=== PATIENT | female | born 1950 | race Caucasian/White ===

== ENCOUNTER → 2016-07-21 | Outpatient (CLI) | payer OTHER ==
[~2016-07-21] MED LIST: ASPEC81 PO; CALCTAB5 PO; CLX20 PO; DYZ PO; LORA-741 PO; MULT-506 PO; VTMEUNK PO
== END | disposition home or self-care (01) ==
LOC: C.RDSM 12:32
PROVIDERS: ATTEND Physical Medicine & Rehabilitation Sports Medicine
DX: M25.561 Pain in right knee (principal)

== ENCOUNTER → 2016-09-14 | Outpatient (CLI) | payer OTHER ==
[2016-09-14 13:11] LABS: BASO % 0.3 %; BASO ABS # 0.02 K/uL (0-0.2); COMPLETE YES; EOS % 4.4 %; HEMATOCRIT 39.7 % (37-47); IG% 0.2 %; LYMPH % 40.6 %; LYMPH ABS # 2.41 K/uL (1.2-3.4); MEAN CELL VOLUME 92.1 fL (80-100); MEAN CORPUSCULAR HEMOGLOBIN 30.4 pg (25-34); MEAN PLATELET VOLUME 9.7 fL (7.4-10.4); MONO % 8.9 %; NEUT % 45.6 %; PLATELET COUNT 274 K/uL (130-400); RED BLOOD COUNT 4.31 M/uL (4.2-5.4); WHITE BLOOD COUNT 5.94 K/uL (4.8-10.8)
[2016-09-14 14:29] LABS: ALKALINE PHOSPHATASE 44 U/L (45-117); ALT/SGPT 28 U/L (12-78); AST/SGOT 18 U/L (15-37); BLOOD UREA NITROGEN 24 mg/dl (7-18); CALCIUM 9.3 mg/dl (8.5-10.1); CARBON DIOXIDE 29 mmol/L (21-32); CHLORIDE 105 mmol/L (98-107); CREATININE 0.92 mg/dl (0.60-1.20); GLUCOSE 87 mg/dl (70-99); POTASSIUM 3.6 mmol/L (3.5-5.1); SODIUM 141 mmol/L (136-145)
[2016-09-14 14:31] LABS: ALB/GLOB RATIO 1.1 (0.9-2); CHOLESTEROL 162 mg/dl (0-200); CHOLESTEROL/HDL RATIO 2.8; HDL CHOLESTEROL 58 mg/dl; TRIGLYCERIDES 72 mg/dl (0-150); VERY LOW DENSITY LIPOPROT CALC 14 mg/dl
== END | disposition home or self-care (01) ==
LOC: C.LABSPEC 12:06
PROVIDERS: ATTEND Internal Medicine
DX: M25.562 Pain in left knee (principal); M81.0 Age-related osteoporosis without current pathological fracture; E78.5 Hyperlipidemia, unspecified; Z11.59 Encounter for screening for other viral diseases

== ENCOUNTER → 2017-02-09 | Outpatient (CLI) | payer OTHER ==
--- NOTE | 2017-02-09 15:29 | MAMMOGRAPHY REPORT ---
BILATERAL DIGITAL SCREENING MAMMOGRAM TOMOSYNTHESIS WITH CAD: 02/09/2017 CLINICAL HISTORY: Routine screening. Patient has no complaints. TECHNIQUE: Breast tomosynthesis in addition to standard 2D mammography was performed. Current study was also evaluated with a Computer Aided Detection (CAD) system. COMPARISON: Comparison is made to exams dated: 01/30/2016 mammogram, 01/01/2015 mammogram, 12/25/2013 m ammogram, 12/22/2012 mammogram, 07/22/2011 mammogram, and 07/20/2010 mammogram - [facility] er. BREAST COMPOSITION: There are scattered areas of fibroglandular density in both breasts. FINDINGS: There is a stable grouping of punctate microcalcifications in the superior right breast. N o suspicious mass, architectural distortion or cluster of new, suspicious microcalcifications is seen . IMPRESSION: ACR BI-RADS CATEGORY 1: NEGATIVE There is no mammographic evidence of malignancy. A 1 year screening mammogram is recommended. The pa tient will receive written notification of the results. Approximately 10% of breast cancers are not detected with mammography. A negative mammographic report should not delay biopsy if a clinically suggestive mass is present. Perlita New M.D. ay/:02/09/2017 12:47:22 Correctional Classification Counselor: Nhung OVALLE)(M), [facility] letter sent: Normal 1/2 BI-RADS Code: ACR BI-RADS Category 1: Negative
== END | disposition home or self-care (01) ==
LOC: C.MAMM 12:18
PROVIDERS: ATTEND Internal Medicine
DX: Z12.31 Encounter for screening mammogram for malignant neoplasm of breast (principal)

== ENCOUNTER → 2017-06-14 | Outpatient (CLI) | payer OTHER ==
[2017-06-14 13:17] LABS: CREATININE 0.76 mg/dl (0.60-1.20)
--- NOTE | 2017-06-23 07:11 | CODING QUERY NO DIAGNOSIS ---
: 1950 TREATMENT RENDERED WITHOUT A DIAGNOSIS To promote full compliance with coding requirements relating to patient care, physician participation is requested in all cases of computer language coder uncertainty. Please assist us with providing a diagnosis/symptom for the test(s) below: A diagnosis/symptom was not documented on your Order. A valid diagnosis/symptom is required to bill all insurances. Please remember that we are unable to code a diagnosis of rule out, probable, possible, questionable, or suspected. Tests that require a diagnosis: DOS: 06/14/17 * CREATININE DIAGNOSIS: Provider Signature: Date: Thank you Vera Cerrato Health Information Management Once completed, please kindly fax back to [phone] For questions please call [phone]
== END | disposition home or self-care (01) ==
LOC: C.LABSPEC 12:32
PROVIDERS: ATTEND Neurological Surgery
DX: Z01.89 Encounter for other specified special examinations (principal)

== ENCOUNTER → 2017-08-30 | Outpatient (CLI) | payer OTHER ==
--- NOTE | 2017-08-30 15:44 | DIAGNOSTIC IMAGING REPORT ---
R HEEL MIN 2 VIEWS CLINICAL HISTORY: 67 years-old Female presenting with R HEEL PAIN. TECHNIQUE: Frontal and lateral views of the calcaneus were obtained. COMPARISON: None. FINDINGS: Prominent enthesophytes at the insertion of the Achilles tendon and origin of the plantar fascia. No abnormal sclerosis in the medullary space of the calcaneus. No acute fracture or malalignment. No radiographic soft tissue abnormality. IMPRESSION: 1. No acute osseous injury. 2. Prominent enthesophytes at the insertion of the Achilles tendon and origin of the plantar fascia. Electronically signed by: Jeanmarie Cooper M.D. 08/30/2017 3:43 PM Dictated Date/Time: 08/30/2017 3:42 PM
== END | disposition home or self-care (01) ==
LOC: C.RAD 15:14
PROVIDERS: ATTEND Internal Medicine
DX: M25.561 Pain in right knee (principal)

== ENCOUNTER 2025-01-21 13:24 | Observation (INO) ==
--- NOTE | 2025-01-21 15:07 | CT Scan Report ---
CT head/brain wo con CLINICAL HISTORY: 74 years-old Female with dizziness. Acute dizziness TECHNIQUE: Multiple axial CT images of the head were obtained without contrast. A dose lowering tech nique was utilized adhering to the principles of ALARA. CT DOSE: 547.75 mGy.cm COMPARISON: 10/04/2023 FINDINGS: No acute intracranial hemorrhage, midline shift, intracranial mass, hydrocephalus, territorial ischem ia or abnormal extra-axial collection. Mild involutional changes. Partially empty sella. The calvarium is intact. The paranasal sinuses, mastoid air cells, and middle ear cavities are clear . IMPRESSION: No acute intracranial abnormality. ACT 112: Negative or not required by law. The above report was generated using voice recognition software. It may contain grammatical, syntax o r spelling errors. Electronically signed by: Cong Chinchilla M.D. 01/21/2025 3:06 PM
[2025-01-21] MEDS: MECLIZINE HCL 25 MG TAB PO STA (15:16)
[2025-01-21] MEDS: ONDANSETRON INJ 2 MG/ML 2 ML VIAL IV STA ×2 (15:18→17:17)
--- NOTE | 2025-01-21 15:28 | Emergency Department Note ---
History of Present Illness General Chief complaint: Vertigo Stated complaint: VERTIGO, VOMITING Time Seen by Provider: 01/21/25 15:27 History of Present Illness This is a 74-year-old female that presents to the emergency department via private vehicle with complaints of "vertigo, vomiting". The patient notes that yesterday she began feeling unwell to include room spinning sensation and nausea. This has worsened today. No speech trouble or weakness. She notes history of brain aneurysms followed with routine MRA of the brain. The patient has history of embolization of one of the previous aneurysms. She denies any recent trauma or injury. No anticoagulant use. She does take low-dose aspirin daily. Home Medications Medication Instructions Recorded Confirmed Type aspirin 81 mg tablet,delayed 81 mg PO QAM 12/11/18 01/21/25 History release (Adult Low Dose Aspirin) calcium 600 mg (as 1 tab PO QAM 05/19/22 01/21/25 History carbonate)-vitamin D3 5 mcg (200 unit) tablet buspirone 15 mg tablet 15 mg PO BID 03/31/23 01/21/25 History escitalopram oxalate 20 mg tablet 20 mg PO QAM 03/31/23 01/21/25 History [id number]-FA-Ca carb-vit K 1 tab PO QAM 11/08/24 01/21/25 History 18 mg iron-400 mcg-500 mg tablet triamterene 37.5 1 cap PO DAILY 01/21/25 01/21/25 History mg-hydrochlorothiazide 25 mg capsule Allergies Allergy/AdvReac Type Severity Reaction Status Date / Time No Known Allergies Allergy Unknown Verified 01/21/25 17:15 Past Med/Surg History Problem List (Updated 01/21/25 @ 23:19 by Ej Ortiz PA-C) Brain aneurysm (Acute) Vertigo (Acute) Abnormal CT scan, gastrointestinal tract Heart palpitations (Acute) Encounter for annual routine gynecological examination History of bilateral salpingo-oophorectomy Atypical chest pain Hypokalemia (Acute) Medical History History of COVID-03 Apr 2022 - no current issues History of anesthesia reaction unsure if anesthesia Rxn, hx hives post op for brain anneurysm coil in 2016 with unknown etiology Fluid retention in legs reason for triamterene/hctz History of DVT of lower extremity 2019 Brain aneurysm coil embolization of 1 in 2017, still has 2 smaller aneurysms not yet meriting treatment. Hypertension denies Postmenopausal osteoporosis Atrial fibrillation hx 2018/hx occasional afib/no hx cardioversion Anxiety Surgical History History of cataract surgery bilateral History of surgery brain anneurysm coil embolization 2016 History of oophorectomy History of foot surgery dec 2021 - right foot ORIF with hardware. History of colonoscopy H/O vaginal hysterectomy Family History Mother Family history of diabetes mellitus Grandmother Family history of diabetes mellitus Other Family history of breast cancer Social History Smoking Status: Former smoker Tobacco Type: Cigarettes Cigarettes Per Day: 5; Smoking End Date: 1984; Second Hand Exposure: No; Do You Dip or Chew Tobacco: No; Hx Alcohol Use: Yes Alcohol type: beer Hx Substance Use: No Preferred Language: Maltese Communication Ability: Effective Shape Hand Required: No Beliefs That Will Affect Care: None Current Living Situation: Alone Current Living Situation Comment: in a house daughter is close to her Other Information That Helps Us Care for You: No Feels Safe at Home: Yes Safety Concerns: Feels Safe At This Time Assistive Devices: None Review of Systems A total of 10 systems reviewed and were otherwise negative Physical Exam Vital Signs Vital Signs - 24 hr 01/21/25 13:57 01/21/25 15:21 01/21/25 15:28 Temperature 36.6 C Temperature Source Temporal Artery Scan Pulse Rate 63 57 L Pulse Rate [Finger] 55 L Pulse Rate from SpO2 Sensor Pulse Rhythm Regular Regular Pulse Strength Normal Respiratory Rate 18 17 14 Respiratory Effort / Characteristics Non-Labored Spontaneous Non-Labored Spontaneous Respiratory Depth Normal Normal Respiratory Pattern Regular Blood Pressure 137/73 Blood Pressure [Right Arm] 146/76 H Blood Pressure Mean 94 Blood Pressure Mean [Right Arm] 99 Blood Pressure Position Sitting Blood Pressure Position [Right Arm] Semi-fowlers Pulse Oximetry 100 99 99 Oxygen Delivery Method Room Air Room Air Room Air Sepsis Recent Fever Within 48 Hours No Sepsis New/Unexplained Change in Mental Status N/A Sepsis Action Taken by Nursing No Action Required 01/21/25 16:14 01/21/25 16:46 01/21/25 17:00 Temperature Temperature Source Pulse Rate 58 L 72 65 Pulse Rate [Finger] Pulse Rate from SpO2 Sensor 65 Pulse Rhythm Pulse Strength Respiratory Rate 14 20 Respiratory Effort / Characteristics Respiratory Depth Respiratory Pattern Blood Pressure 152/67 H Blood Pressure [Right Arm] Blood Pressure Mean 95 Blood Pressure Mean [Right Arm] Blood Pressure Position Blood Pressure Position [Right Arm] Pulse Oximetry 99 100 Oxygen Delivery Method Room Air Sepsis Recent Fever Within 48 Hours Sepsis New/Unexplained Change in Mental Status Sepsis Action Taken by Nursing 01/21/25 17:12 01/21/25 17:23 01/21/25 17:30 Temperature Temperature Source Pulse Rate 65 66 Pulse Rate [Finger] 69 Pulse Rate from SpO2 Sensor 65 67 Pulse Rhythm Pulse Strength Respiratory Rate 16 16 10 L Respiratory Effort / Characteristics Respiratory Depth Respiratory Pattern Blood Pressure Blood Pressure [Right Arm] 152/67 H Blood Pressure Mean Blood Pressure Mean [Right Arm] 95 Blood Pressure Position Blood Pressure Position [Right Arm] Pulse Oximetry 100 99 100 Oxygen Delivery Method Sepsis Recent Fever Within 48 Hours Sepsis New/Unexplained Change in Mental Status Sepsis Action Taken by Nursing 01/21/25 17:56 01/21/25 18:00 01/21/25 18:00 Temperature Temperature Source Pulse Rate 68 Pulse Rate [Finger] Pulse Rate from SpO2 Sensor Pulse Rhythm Pulse Strength Respiratory Rate 14 Respiratory Effort / Characteristics Respiratory Depth Respiratory Pattern Blood Pressure 147/81 H 147/74 H 147/74 H Blood Pressure [Right Arm] Blood Pressure Mean 103 87 87 Blood Pressure Mean [Right Arm] Blood Pressure Position Blood Pressure Position [Right Arm] Pulse Oximetry 100 Oxygen Delivery Method Room Air Sepsis Recent Fever Within 48 Hours Sepsis New/Unexplained Change in Mental Status Sepsis Action Taken by Nursing 01/21/25 18:06 01/21/25 18:27 01/21/25 18:30 Temperature Temperature Source Pulse Rate 69 64 Pulse Rate [Finger] Pulse Rate from SpO2 Sensor 65 Pulse Rhythm Pulse Strength Respiratory Rate 17 19 Respiratory Effort / Characteristics Respiratory Depth Respiratory Pattern Blood Pressure 146/69 H Blood Pressure [Right Arm] Blood Pressure Mean 79 Blood Pressure Mean [Right Arm] Blood Pressure Position Blood Pressure Position [Right Arm] Pulse Oximetry 99 Oxygen Delivery Method Sepsis Recent Fever Within 48 Hours Sepsis New/Unexplained Change in Mental Status Sepsis Action Taken by Nursing 01/21/25 18:36 01/21/25 19:00 01/21/25 19:30 Temperature Temperature Source Pulse Rate 66 62 65 Pulse Rate [Finger] Pulse Rate from SpO2 Sensor 67 Pulse Rhythm Pulse Strength Respiratory Rate 17 19 18 Respiratory Effort / Characteristics Respiratory Depth Respiratory Pattern Blood Pressure 130/66 133/85 Blood Pressure [Right Arm] Blood Pressure Mean 106 91 Blood Pressure Mean [Right Arm] Blood Pressure Position Blood Pressure Position [Right Arm] Pulse Oximetry 99 100 96 Oxygen Delivery Method Nasal Cannula Room Air Sepsis Recent Fever Within 48 Hours Sepsis New/Unexplained Change in Mental Status Sepsis Action Taken by Nursing 01/21/25 19:47 Temperature Temperature Source Pulse Rate Pulse Rate [Finger] Pulse Rate from SpO2 Sensor Pulse Rhythm Pulse Strength Respiratory Rate Respiratory Effort / Characteristics Respiratory Depth Respiratory Pattern Blood Pressure Blood Pressure [Right Arm] Blood Pressure Mean Blood Pressure Mean [Right Arm] Blood Pressure Position Blood Pressure Position [Right Arm] Pulse Oximetry 94 Oxygen Delivery Method Room Air Sepsis Recent Fever Within 48 Hours Sepsis New/Unexplained Change in Mental Status Sepsis Action Taken by Nursing VITAL SIGNS - Vital signs and nursing notes were reviewed. Stable and afebrile. GENERAL -74-year-old female appearing her stated age who is in no acute distress. Communicates well with provider and answers questions appropriately. SKIN - Without rashes. No meningeal or petechial rash. HEAD - NC/AT. EYES - PERRL with EOMI bilaterally. Sclera anicteric. EARS - No deformities of external structures noted on gross examination bilaterally. External auditory canals without discharge or otorrhea. Tympanic membranes pearly hurtado without retraction or bulging. No fluid or purulent material visualized behind the TM. Handle of malleus, umbo, cone of light, pars tensa/flaccid all easily visualized. NOSE - Midline and without cyanosis. No epistaxis or purulent drainage noted. Septum midline without deviation or septal hematoma noted. MOUTH/OROPHARYNX - Without perioral cyanosis. Buccal mucosa pink and moist and without leukoplakia. Tongue midline with equal elevation of palate bilaterally. No tonsillar hypertrophy, erythema, or exudates noted. Good dentition noted. NECK - Neck with FROM. Supple to palpation. No lymphadenopathy noted. No nuchal rigidity. LUNGS - Chest wall symmetric without accessory muscle use, intercostals retractions, or central cyanosis. Normal vesicular breath sounds CTA B/L. No wheezes, rales, or rhonchi appreciated. CARDIAC - RRR with S1/S2 ABDOMEN - Abdominal contour normal without pulsations or visible masses. +5/5 strength noted in UE/LE bilaterally. NEUROLOGIC - Cranial nerves grossly intact. Sensory intact to light touch throughout. PSYCH -alert, oriented and pleasant on exam Course Administered Medications Aspirin (Aspirin 81 Mg Ectab) 81 mg PO QAM LAINE Stop: 02/20/25 20:00 Last Admin: 01/21/25 21:53 Dose: 81 mg Documented By: MG Buspirone HCl (Buspirone 15 Mg Tab) 15 mg PO BID LAINE Stop: 02/20/25 20:59 Last Admin: 01/21/25 21:54 Dose: 15 mg Documented By: MG Escitalopram Oxalate (Escitalopram Oxalate 20 Mg Tab) 20 mg PO QAM LAINE Stop: 02/20/25 20:00 Last Admin: 01/21/25 21:52 Dose: 20 mg Documented By: MG Fluticasone Propionate (Fluticasone Propionate Na Spr 16 Gm Btl) 1 sprays NA DAILY LAINE Stop: 02/20/25 20:00 Last Admin: 01/21/25 21:54 Dose: Not Given Documented By: MG Lactated Ringer's (Lr) 1,000 mls @ 80 mls/hr IV .[id number] LAINE Stop: 01/22/25 08:59 Last Admin: 01/21/25 21:54 Dose: 80 mls/hr Documented By: MG Meclizine HCl (Meclizine 12.5 Mg Tab) 12.5 mg PO Q6H PRN PRN Reason: Vertigo Stop: 02/20/25 20:00 Last Admin: 01/21/25 22:20 Dose: 12.5 mg Documented By: MG Discontinued Medications Sodium Chloride (Nss) 500 mls @ 500 mls/hr IV .Q1H ONE Stop: 01/21/25 16:49 Last Infusion: 01/21/25 16:55 Dose: Infused Documented By: Admin: 01/21/25 16:01 Dose: 500 mls/hr Documented By: ANT Ioversol (Optiray 320 125ml) 119 ml IV ONCE ONE Stop: 01/21/25 16:13 Last Admin: 01/21/25 16:12 Dose: 119 ml Documented By: EAB Lorazepam (Lorazepam 1 Mg/1 Ml Syr Ed Inj Use) 0.25 mg IV ONE STA Stop: 01/21/25 17:47 Last Admin: 01/21/25 18:13 Dose: 0.25 mg Documented By: MARIA TERESA Meclizine HCl (Meclizine Hcl 25 Mg Tab) 25 mg PO NOW STA Stop: 01/21/25 14:12 Last Admin: 01/21/25 15:16 Dose: 25 mg Documented By: EDWAR Ondansetron HCl (Ondansetron Inj 2 Mg/Ml 2 Ml Vial) 4 mg IV NOW STA Stop: 01/21/25 14:12 Last Admin: 01/21/25 15:18 Dose: 4 mg Documented By: EDWAR Ondansetron HCl (Ondansetron Inj 2 Mg/Ml 2 Ml Vial) 4 mg IV NOW STA Stop: 01/21/25 17:00 Last Admin: 01/21/25 17:17 Dose: 4 mg Documented By: [email or web address] Medical Decision Making Laboratory Data 01/21/25 15:15 01/21/25 15:15 Lab Results 01/21/25 Range/Units 15:15 WBC 11.70 H (4.8-10.8) K/ul RBC 4.73 (4.20-5.40) M/uL Hgb 14.1 (12.0-16.0) g/dl Hct 43.0 (37.0-47.0) % MCV 90.9 (80.0-100.0) fL MCH 29.8 (25.0-34.0) pg MCHC 32.8 (32.0-36.0) g/dL RDW Std Deviation 41.7 (36.4-46.3) fL RDW Coeff of Tray 12.4 (11.5-14.5) % Plt Count 225 (130-400) K/uL MPV 9.4 (9.4-12.4) fL Immature Gran % (Auto) 0.3 % Neut % (Auto) 84.1 % Lymph % (Auto) 11.4 % Owsley % (Auto) 3.7 % Eos % (Auto) 0.3 % Baso % (Auto) 0.2 % Neut # (Auto) 9.85 H (1.40-6.50) K/uL Lymph # (Auto) 1.33 (1.20-3.40) K/uL Owsley # (Auto) 0.43 (0.11-0.59) K/uL Eos # (Auto) 0.03 (0.00-0.50) K/uL Baso # (Auto) 0.02 (0.00-0.20) K/uL Immature Gran # (Auto) 0.04 (0.01-0.20) K/uL PT 10.4 (9.0-12.0) Seconds INR 1.0 (0.9-1.1) Sodium 141 (136-145) mmol/L Potassium 3.6 (3.5-5.1) mmol/L Chloride 102 (98-107) mmol/L Carbon Dioxide 31 (21-32) mmol/L Anion Gap 8 (3-11) BUN 21 (6-23) mg/dl Creatinine 0.79 (0.6-1.2) mg/dl Est Cr Clr Drug Dosing Not Reportable eGFR 77.47 BUN/Creatinine Ratio 26.6 H (10-20) Glucose 116 H (70-99(Fasting)) mg/dl Calcium 9.6 (8.6-10.3) mg/dl Total Bilirubin 0.8 (0.2-1.0) mg/dl AST 21 (13-39) U/L ALT 16 (7-52) U/L Alkaline Phosphatase 51 (34-104) U/L Troponin I High Sens 3.8 (0-14) pg/ml Total Protein 7.3 (6.0-8.3) gm/dl Albumin 4.0 (3.4-5.0) gm/dl Globulin 3.3 (2.5-4.0) gm/dl Albumin/Globulin Ratio 1.2 (0.9-2) Imaging Data Radiologist's Impression: Head CT 01/21/25 14:11 CT head/brain wo con CLINICAL HISTORY: 74 years-old Female with dizziness. Acute dizziness TECHNIQUE: Multiple axial CT images of the head were obtained without contrast. A dose lowering technique was utilized adhering to the principles of ALARA. CT DOSE: 547.75 mGy.cm COMPARISON: 10/04/2023 FINDINGS: No acute intracranial hemorrhage, midline shift, intracranial mass, hydrocephalus, territorial ischemia or abnormal extra-axial collection. Mild involutional changes. Partially empty sella. The calvarium is intact. The paranasal sinuses, mastoid air cells, and middle ear cavities are clear. IMPRESSION: No acute intracranial abnormality. ACT 112: Negative or not required by law. The above report was generated using voice recognition software. It may contain grammatical, syntax or spelling errors. Electronically signed by: Cong Chinchilla M.D. 01/21/2025 3:06 PM Head CTA 01/21/25 15:50 Exam: CT angiogram head with contrast Reason for exam: Vertigo and nausea with a history of an aneurysm. Previous studies: CTA head 10/04/2023 FINDINGS: Flow is intact in the distal internal carotid arteries bilaterally. Arterial stents is seen in the distalmost right internal carotid artery similar to the previous study of the second stent also remaining present. 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 No evidence of active hemorrhage is seen at this time. Intact flow to the middle, anterior and pericallosal arteries remains present bilaterally. Intact flow seen in the distal vertebral artery is patent and the basilar artery. Intact posterior circulation. No evidence of abnormal reforming aneurysm or hemorrhage is seen at this time. IMPRESSION: 1. Stable appearance as compared to the previous study of 10/04/2023. 2. Stable appearance status intervention with stent and clips right distal internal carotid artery. 3. Stable size aneurysm anterior communicating artery. 4. No evidence of active hemorrhage seen at this time. Electronically signed by Madi Barrera 01-21-2025 5:36 PM Neck CTA 01/21/25 15:50 Exam: CT angiogram neck with contrast Reason for exam: Nausea with history of aneurysm. Previous studies: 10/04/2023. 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 No stenosis at the level of the aortic arch. Both carotid bifurcations are well visualized and show no significant stenosis in the neck. Intact vertebral artery flow is seen bilaterally. The vertebrals B and essentially symmetric in size. IMPRESSION: Essentially normal study. No significant arterial stenosis in the neck. Electronically signed by Madi Barrera 01-21-2025 5:41 PM Brain MRI 01/21/25 19:41 Exam(s): MRI HEAD Without Contrast EXAM: MR Head Without Intravenous Contrast CLINICAL HISTORY: Reason for exam: vertigo. TECHNIQUE: Magnetic resonance images of the head/brain without intravenous contrast in multiple planes. COMPARISON: No relevant prior studies available. FINDINGS: Brain: No diffusion restriction to suggest acute cerebral ischemia. No evidence of acute intracranial hemorrhage. Proximal intracranial flow voids appear normal. Parenchymal volume normal for age. No significant white matter disease. Ventricles: Unremarkable. No hydrocephalus. Bones/joints: Unremarkable. No acute fracture. Sinuses: Mucosal thickening and fluid in the left maxillary sinus. Mastoid air cells: Unremarkable as visualized. No mastoid effusion. Orbits: Lens replacements. IMPRESSION: No diffusion restriction to suggest acute cerebral ischemia. No evidence of acute intracranial hemorrhage. Electronically signed by: Carlie Yang M.D. 01/21/25 21:23 PM MDM Narrative Patient was seen and evaluated as above in room A11a. Review was performed of triage nursing notes and vital signs. I did review pertinent previous visits and patient history. After obtaining a thorough history and physical examination the above work up was performed. Patient presents to us today for evaluation of the above symptoms. She is well-appearing and nontoxic on assessment but with any movements of the head does have reproduction of the vertigo. She has no focal deficit clinically. EKG was performed and per my interpretation reveals sinus bradycardia at a rate of 56 bpm. QTc 434. QRS 84. No ST elevation on this rhythm tracing. Leukocytosis 11.7. No anemia. INR normal. No evidence of kidney or liver failure. Troponin negative. Hyperglycemia 116. Examination does reveal a small amount of fluid behind the right TM greater than the left. There is no evidence of otitis media. CT head Noncon plus CT angios head and neck were obtained. Results as above. These were essentially unchanged compared to previous. The patient despite medications here continues with vertiginous symptoms. I do believe that further evaluation and management in the inpatient setting is warranted. Case discussed with the hospitalist service. Please refer to further documentation regarding her stay. GCS: 15 In the evaluation and treatment of this patient the following differential diagnoses were entertained: CVA, TIA, BPPV, electrolyte disturbance, among others Impression & Plan Vertigo, Brain aneurysm Discharge Plan Visit Data Chief Complaint: Vertigo Stated Complaint: VERTIGO, VOMITING ED Provider: Pradip Morel ED Midlevel Provider: Ej Ortiz Discharge Problem: Vertigo, Brain aneurysm Patient Disposition: Admitted As Inpatient Condition: Good Discharge Instructions Interventions: ED Discharge Assessment Last Done: 01/21/25 20:01
[2025-01-21 15:31] LABS: Hematocrit (blood only) 43.0 % (37.0-47.0); Hemoglobin 14.1 g/dl (12.0-16.0); Immature Granulocytes # (auto) 0.04 K/uL (0.01-0.20); Immature Granulocytes % (auto) 0.3 %; Mean Corpuscular Hemoglobin 29.8 pg (25.0-34.0); Mean Corpuscular Volume 90.9 fL (80.0-100.0); Platelet Count 225 K/uL (130-400); RDW Standard Deviation 41.7 fL (36.4-46.3); Red Blood Count 4.73 M/uL (4.20-5.40); White Blood Count 11.70 K/ul (4.8-10.8)
[2025-01-21 15:55] LABS: Alanine Aminotransferase 16 U/L (7-52); Albumin Globulin Ratio 1.2 (0.9-2); Alkaline Phosphatase 51 U/L (34-104); Anion Gap 8 (3-11); Bilirubin,Total 0.8 mg/dl (0.2-1.0); Blood Urea Nitrogen 21 mg/dl (6-23); Calcium 9.6 mg/dl (8.6-10.3); Carbon Dioxide 31 mmol/L (21-32); Chloride 102 mmol/L (98-107); Globulin 3.3 gm/dl (2.5-4.0); Glucose 116 mg/dl (70-99(Fasting)); Potassium 3.6 mmol/L (3.5-5.1); Sodium 141 mmol/L (136-145); Total Protein 7.3 gm/dl (6.0-8.3)
[2025-01-21 15:56] LABS: INR 1.0 (0.9-1.1); Prothrombin Time 10.4 Seconds (9.0-12.0)
[2025-01-21] MEDS: SODIUM CHLORIDE 0.9% 500 ML IV ONE (16:01)
[2025-01-21] MEDS: OPTIRAY 320 125ml IV ONE (16:12)
--- NOTE | 2025-01-21 16:37 | Emergency Department Note ---
ED Visit Note I was consulted by the Advanced Practice Provider, Ej Ortiz PA-C. I personally made/approved the management plan and take responsibility for the patient management. I performed a substantive portion of the visit. This includes the aspects of: -History/Physical/Personally seeing the patient -MDM .
--- NOTE | 2025-01-21 17:36 | CT Scan Report ---
Exam: CT angiogram head with contrast Reason for exam: Vertigo and nausea with a history of an aneurysm. Previous studies: CTA head 10/04/2023 FINDINGS: Flow is intact in the distal internal carotid arteries bilaterally. Arterial stents is seen in the distalmost right internal carotid artery similar to the previous study of the second stent also remaining present. 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 No evidence of active hemorrhage is seen at this time. Intact flow to the middle, anterior and pericallosal arteries remains present bilaterally. Intact flow seen in the distal vertebral artery is patent and the basilar artery. Intact posterior circulation. No evidence of abnormal reforming aneurysm or hemorrhage is seen at this time. IMPRESSION: 1. Stable appearance as compared to the previous study of 10/04/2023. 2. Stable appearance status intervention with stent and clips right distal internal carotid artery. 3. Stable size aneurysm anterior communicating artery. 4. No evidence of active hemorrhage seen at this time. Electronically signed by Madi Barrera 01-21-2025 5:36 PM
--- NOTE | 2025-01-21 17:42 | CT Scan Report ---
Exam: CT angiogram neck with contrast Reason for exam: Nausea with history of aneurysm. Previous studies: 10/04/2023. 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 No stenosis at the level of the aortic arch. Both carotid bifurcations are well visualized and show no significant stenosis in the neck. Intact vertebral artery flow is seen bilaterally. The vertebrals B and essentially symmetric in size. IMPRESSION: Essentially normal study. No significant arterial stenosis in the neck. Electronically signed by Madi Barrera 01-21-2025 5:41 PM
[2025-01-21] MEDS: LORazepam 1 MG/1 ML SYR ED Inj Use IV STA (18:13)
--- NOTE | 2025-01-21 19:48 | History & Physical Report ---
Date of Service January 21, 2025 Assessment & Plan (1) Vertigo: (2) Brain aneurysm: (3) Hypertension: Plan Patient is a 74-year-old female with past medical history of known brain aneurysm, A-fib, DVT no longer longer on anticoagulation. Patient presented due to 2 days of sudden onset positional vertigo which she has no history of. Head CT revealed stable aneurysm, otherwise diagnostic imaging negative for acute changes. Patient with some fluid behind her tympanic membranes on physical exam. She is being admitted for vertigo workup. #vertigo - CVA workup vs BPPV with fluid behind BL TM on physical exam. Diagnostic imaging negative for acute changes, stable aneurysm and head CTA noted. - stroke without TNK order set - active ROM, Q4H neuro checks, etc. - Allow for permissive hypertension with goal parameters 220/110 until MRI resulted - Telemetry monitoring - MRI brain ordered - echo with bubble study ordered - lipid panel and A1C with AM labs - continue home baby aspirin - PT/OT ordered - Flonase daily ordered to start on admission - Zofran prn - Antivert 12.5 q6h prn - LR @ 80 ml/hr x1L - consider steroid taper once MRI resulted #brain aneurysm follows with [place] [facility]. S/p coiling. 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 - unchanged on head CTA on admission - continue baby aspirin #htn - hold triamterene-hctz 01/21 with permissive HTN #mental health - continue buspar and lexapro VTE ppx: SCDs, hx of dvt however defer chemical ppx until MRI resulted and obs status - if prolonged stay consider chemical ppx Dispo: med/tele, obs - anticipate dc home 01/22 Admission and Anticipated Discharge Date Admission Date: 01/21/25 History of Present Illness Chief Complaint: vertigo Primary Care Provider: Ever Burnett MD Patient is a 74-year-old female with past medical history of known brain aneurysm, A-fib, DVT no longer longer on anticoagulation. Patient presented due to 2 days of sudden onset positional vertigo which she has no history of. Head CT revealed stable aneurysm, otherwise diagnostic imaging negative for acute changes. Patient with some fluid behind her tympanic membranes on physical exam. She is being admitted for vertigo workup. Patient seen at bedside. She woke up yesterday and when she got out of bed the whole room was spinning and she had associated nausea and dry heaves. Today she had similar symptoms however was worse. She tried to look up some maneuvers at home to help with vertigo however got worse whenever she laid down. Vertigo occurs with any head movements or when she goes from sitting to standing. She stated she did have some pain across her left neck and ear as well as feeling clammy for a few days however denies any other symptoms. Denies confusion, numbness, tingling, facial droop, difficulty speaking, difficulty with ambulation. She denies any history of allergies, rhinorrhea, sore throat, chest pain, shortness of breath. She feels unsteady on her feet due to the vertigo. She denies any nicotine use. Occasionally has a glass of wine or mixed drink with vodka. Denies past history of CVA. Did not take her home medications today due to not feeling well. She was previously on anticoagulation for DVT 4 to 6 years ago which was provoked from prolonged bus ride, took this for 6 months and now is no longer on anticoagulation. She wishes to be full code however would not want prolonged CPR. Allergies Allergy/AdvReac Type Severity Reaction Status Date / Time No Known Allergies Allergy Unknown Verified 01/21/25 17:15 Home Medications Medication Instructions Recorded Confirmed Type aspirin 81 mg tablet,delayed 81 mg PO QAM 12/11/18 01/21/25 History release (Adult Low Dose Aspirin) calcium 600 mg (as 1 tab PO QAM 05/19/22 01/21/25 History carbonate)-vitamin D3 5 mcg (200 unit) tablet buspirone 15 mg tablet 15 mg PO BID 03/31/23 01/21/25 History escitalopram oxalate 20 mg tablet 20 mg PO QAM 03/31/23 01/21/25 History uknvnbph-nyc-pxtk-FA-Ca carb-vit K 1 tab PO QAM 11/08/24 01/21/25 History 18 mg iron-400 mcg-500 mg tablet triamterene 37.5 1 cap PO DAILY 01/21/25 01/21/25 History mg-hydrochlorothiazide 25 mg capsule Past Med/Surg History Problem List (Updated 01/22/25 @ 01:35 by Kaila N Kyara, PA-C) Hypertension denies Brain aneurysm (Acute) Vertigo (Acute) Abnormal CT scan, gastrointestinal tract Heart palpitations (Acute) Encounter for annual routine gynecological examination History of bilateral salpingo-oophorectomy Atypical chest pain Hypokalemia (Acute) Medical History History of COVID-03 Apr 2022 - no current issues History of anesthesia reaction unsure if anesthesia Rxn, hx hives post op for brain anneurysm coil in 2016 with unknown etiology Fluid retention in legs reason for triamterene/hctz History of DVT of lower extremity 2019 Brain aneurysm coil embolization of 1 in 2017, still has 2 smaller aneurysms not yet meriting treatment. Hypertension denies Postmenopausal osteoporosis Atrial fibrillation hx 2018/hx occasional afib/no hx cardioversion Anxiety Surgical History History of cataract surgery bilateral History of surgery brain anneurysm coil embolization 2016 History of oophorectomy History of foot surgery dec 2021 - right foot ORIF with hardware. History of colonoscopy H/O vaginal hysterectomy Family History Mother Family history of diabetes mellitus Grandmother Family history of diabetes mellitus Other Family history of breast cancer Social History Smoking Status: Former smoker Tobacco Type: Cigarettes Cigarettes Per Day: 5; Smoking End Date: 1984; Second Hand Exposure: No; Do You Dip or Chew Tobacco: No; Hx Alcohol Use: Yes Alcohol type: beer Hx Substance Use: No Preferred Language: Armenian Communication Ability: Effective Personnel Worker Required: No Beliefs That Will Affect Care: None Current Living Situation: Alone Current Living Situation Comment: in a house daughter is close to her Other Information That Helps Us Care for You: No Feels Safe at Home: Yes Safety Concerns: Feels Safe At This Time Assistive Devices: None Review of Systems Review of Systems: see HPI Physical Exam Physical Exam: The patient is awake, alert and oriented 3, well developed and well nourished, normocephalic and atraumatic, in no acute distress. Non-toxic appearing. HEENT- EOMI, mucous membranes moist. Hearing grossly intact. Fluid behind bl tympanic membranes, R>L. Heart-normal S1 and S2. No murmurs, rubs or gallops. Lungs-clear bilaterally, no respiratory distress, no accessory muscle use. Abdomen-normal bowel sounds and soft. No ascites noted. Non-tender. Extremities- no clubbing, cyanosis, or edema. Rheumatologic-normal range of motion. Psychiatric-normal affect. Neurologic: PERRL, EOMI, accommodation nl, no face palsy, no dysarthria Results & Data Results & Data Vital Signs (Past 12 Hours) Vital Signs Temp Pulse Pulse Resp BP BP Pulse Ox 01/21/25 19:00 62 19 130/66 100 01/21/25 18:36 66 17 99 01/21/25 18:30 146/69 H 01/21/25 18:27 64 19 99 01/21/25 18:06 69 17 01/21/25 18:00 147/74 H 01/21/25 18:00 147/74 H 01/21/25 17:56 68 14 147/81 H 100 01/21/25 17:30 66 10 L 100 01/21/25 17:23 69 16 152/67 H 99 01/21/25 17:12 65 16 100 01/21/25 17:00 65 20 100 01/21/25 16:46 72 01/21/25 16:14 58 L 14 152/67 H 99 01/21/25 15:28 57 L 14 99 01/21/25 15:21 55 L 17 146/76 H 99 01/21/25 13:57 36.6 C 63 18 137/73 100 O2 Del Method 01/21/25 19:00 Nasal Cannula 01/21/25 18:36 01/21/25 18:30 01/21/25 18:27 01/21/25 18:06 01/21/25 18:00 01/21/25 18:00 01/21/25 17:56 Room Air 01/21/25 17:30 01/21/25 17:23 01/21/25 17:12 01/21/25 17:00 01/21/25 16:46 01/21/25 16:14 Room Air 01/21/25 15:28 Room Air 01/21/25 15:21 Room Air 01/21/25 13:57 Room Air Laboratory Results Lab Results 09/08/25 Range/Units 15:15 WBC 11.70 H (4.8-10.8) K/ul RBC 4.73 (4.20-5.40) M/uL Hgb 14.1 (12.0-16.0) g/dl Hct 43.0 (37.0-47.0) % MCV 90.9 (80.0-100.0) fL MCH 29.8 (25.0-34.0) pg MCHC 32.8 (32.0-36.0) g/dL RDW Std Deviation 41.7 (36.4-46.3) fL RDW Coeff of Tray 12.4 (11.5-14.5) % Plt Count 225 (130-400) K/uL MPV 9.4 (9.4-12.4) fL Immature Gran % (Auto) 0.3 % Neut % (Auto) 84.1 % Lymph % (Auto) 11.4 % [place] % (Auto) 3.7 % Eos % (Auto) 0.3 % Baso % (Auto) 0.2 % Neut # (Auto) 9.85 H (1.40-6.50) K/uL Lymph # (Auto) 1.33 (1.20-3.40) K/uL [place] # (Auto) 0.43 (0.11-0.59) K/uL Eos # (Auto) 0.03 (0.00-0.50) K/uL Baso # (Auto) 0.02 (0.00-0.20) K/uL Immature Gran # (Auto) 0.04 (0.01-0.20) K/uL PT 10.4 (9.0-12.0) Seconds INR 1.0 (0.9-1.1) Sodium 141 (136-145) mmol/L Potassium 3.6 (3.5-5.1) mmol/L Chloride 102 (98-107) mmol/L Carbon Dioxide 31 (21-32) mmol/L Anion Gap 8 (3-11) BUN 21 (6-23) mg/dl Creatinine 0.79 (0.6-1.2) mg/dl Est Cr Clr Drug Dosing Not Reportable eGFR 77.47 BUN/Creatinine Ratio 26.6 H (10-20) Glucose 116 H (70-99(Fasting)) mg/dl Calcium 9.6 (8.6-10.3) mg/dl Total Bilirubin 0.8 (0.2-1.0) mg/dl AST 21 (13-39) U/L ALT 16 (7-52) U/L Alkaline Phosphatase 51 (34-104) U/L Troponin I High Sens 3.8 (0-14) pg/ml Total Protein 7.3 (6.0-8.3) gm/dl Albumin 4.0 (3.4-5.0) gm/dl Globulin 3.3 (2.5-4.0) gm/dl Albumin/Globulin Ratio 1.2 (0.9-2) Diagnostic Findings reviewed head CT, head CTA, neck CTA ordered brain MRI Medications Administered EDZofran 4 Mg IV x 2, Antivert 25 Mg p.o., 500 mL NSS bolus, Ativan 0.25 mg IV ECG Additional Comments: sinus bradycardia, rate 56 qtc 434 Code Status & VTE Plan Code Status full code would not want prolonged cpr/measures VTE Prophylaxis Plan VTE Prophylaxis will be ordered: Yes Supervising Physician Co-Signing Physician Notes Attending addendum: I have physically seen this patient, have supervised the MARGARITA's activities, and agree with the H&P unless as otherwise noted. Assessment and Plan: The patient is a 74-year-old female with past medical history including brain aneurysm, atrial fibrillation, mood disorder, and DVT no longer on anticoagulation. She presents to the emergency department due to 2 days of new, sudden onset positional vertigo. Workup in the emergency department included CT scan of head which was negative. CTA of head revealed stable aneurysm in the anterior communicating artery, and a stable stent and clips in the distal right ICA, CTA neck was negative. Brain MRI showed no diffusion restriction to suggest acute cerebral ischemia, and there was no evidence of acute intracranial hemorrhage. Vertigo- Workup with CT scan of head, CTA of head, CTA of neck, and brain MRI as reported above. The patient will be admitted to telemetry for serial cardiac enzymes, serial EKG's, cardiac rhythm monitoring and a 2-D echocardiogram with Dopplers. Consult PT/OT Antivert 12.5 mg p.o. every 6 hours as needed Zofran 4 mg IV every 6 hours as needed LR at 80 mL/h x 1 L Permissive hypertension Brain aneurysms- Stable as noted above Hypertension- Holding triamterene/HCTZ for now Mental health- Continue BuSpar and Lexapro PG Care Time/CCT Total # of Minutes Spent Total Time Spent with Patient: Total time spent is greater than 50% in coordination of care (as documented) at patient's floor/unit and/or counseling patient: Coding Level of Care Code 76532 INT INP/OBS CARE 3/75MIN Diagnoses Vertigo R42 Brain aneurysm I67.1 Hypertension I10
[2025-01-21] MEDS ORDERED: PHARMACIST DISCHARGE MED REC CONSULT PRN (20:01)
[2025-01-21] MEDS ORDERED: MELATONIN 3 MG TAB PO PRN (20:01)
[2025-01-21] MEDS ORDERED: ACETAMINOPHEN 325 MG TAB PO PRN (20:01)
[2025-01-21] MEDS ORDERED: ONDANSETRON INJ 2 MG/ML 2 ML VIAL IV PRN (20:01)
[2025-01-21] MEDS ORDERED: DOCUSATE SODIUM 100 MG CAP PO PRN (20:01)
--- NOTE | 2025-01-21 21:24 | Magnetic Resonance Report ---
Exam(s): MRI HEAD Without Contrast EXAM: MR Head Without Intravenous Contrast CLINICAL HISTORY: Reason for exam: vertigo. TECHNIQUE: Magnetic resonance images of the head/brain without intravenous contrast in multiple planes. COMPARISON: No relevant prior studies available. FINDINGS: Brain: No diffusion restriction to suggest acute cerebral ischemia. No evidence of acute intracranial hemorrhage. Proximal intracranial flow voids appear normal. Parenchymal volume normal for age. No significant white matter disease. Ventricles: Unremarkable. No hydrocephalus. Bones/joints: Unremarkable. No acute fracture. Sinuses: Mucosal thickening and fluid in the left maxillary sinus. Mastoid air cells: Unremarkable as visualized. No mastoid effusion. Orbits: Lens replacements. IMPRESSION: No diffusion restriction to suggest acute cerebral ischemia. No evidence of acute intracranial hemorrhage. Electronically signed by: Carlie Yang M.D. 01/21/25 21:23 PM
[2025-01-21] MEDS: ESCITALOPRAM OXALATE 20 MG TAB PO SCH (21:52)
[2025-01-21] MEDS: ASPIRIN 81 MG ECTAB PO SCH (21:53)
[2025-01-21] MEDS: busPIRone 15 MG TAB PO SCH (21:54)
[2025-01-21] MEDS: LACTATED RINGER'S 1,000 ML IV SCH (21:54)
[2025-01-21] MEDS: FLUTICASONE PROPIONATE NA SPR 16 GM BTL SCH (21:54)
[2025-01-21] MEDS: MECLIZINE 12.5 MG TAB PO PRN (22:20)
[2025-01-22 07:23] LABS: Hematocrit (blood only) 37.0 % (37.0-47.0); Hemoglobin 12.4 g/dl (12.0-16.0); Immature Granulocytes # (auto) 0.01 K/uL (0.01-0.20); Immature Granulocytes % (auto) 0.2 %; Mean Corpuscular Hemoglobin 30.8 pg (25.0-34.0); Mean Corpuscular Volume 91.8 fL (80.0-100.0); Platelet Count 210 K/uL (130-400); RDW Standard Deviation 42.3 fL (36.4-46.3); Red Blood Count 4.03 M/uL (4.20-5.40); White Blood Count 6.19 K/ul (4.8-10.8)
[2025-01-22 07:48] VITALS: RESP 18; TEMP 98.6; O2SAT 96
[2025-01-22 08:18] LABS: Anion Gap 4.0 (3-11); Blood Urea Nitrogen 19.0 mg/dl (6-23); Calcium 8.3 mg/dl (8.6-10.3); Carbon Dioxide 30.0 mmol/L (21-32); Chloride 107.0 mmol/L (98-107); Cholesterol 132.0 mg/dl (0-200); Creatinine Clr Calc Pharmacy 54.3 ml/min; Glucose 95.0 mg/dl (70-99(Fasting)); HDL Cholesterol 53.0 mg/dl; Magnesium 1.7 mg/dl (1.7-2.4); Potassium 3.4 mmol/L (3.5-5.1); Sodium 141.0 mmol/L (136-145); Triglycerides 67.0 mg/dl (0-150)
[2025-01-22 08:24] LABS: Hemoglobin A1C 5.6 % (4.5-5.6)
--- NOTE | 2025-01-22 08:51 | XCELERA ---
[id number] \\[email or web address]\[id number]
[2025-01-22] MEDS: MECLIZINE 12.5 MG TAB PO SCH (10:43)
[2025-01-22 11:34] VITALS: BP 96/58; PULSE 63
--- NOTE | 2025-01-22 11:47 | Discharge Summary ---
Discharge Summary Date of Service January 22, 2025 Principal Dx & Hospital Course #1 = Principal Diagnosis (1) Vertigo: (2) Brain aneurysm: (3) Hypertension: Plan Patient is a 74-year-old female with past medical history of known brain aneurysm, A-fib, DVT no longer longer on anticoagulation. Patient presented due to 2 days of sudden onset positional vertigo which she has no history of. Head CT revealed stable aneurysm, otherwise diagnostic imaging negative for acute changes. Patient with some fluid behind her tympanic membranes on physical exam. She is being admitted for vertigo workup. #vertigo - highly positional and consistent with BPPV Stroke workup negative - CTA h/n with no change in aneurysm and previous clipping, brain MRI negative, tele negative for arrhythmia, Echo unchanged from prior with normal EF, mild TR, negative bubble -symptoms and exam more consistent with peripheral vertigo rather than stroke/TIA Very good response to meclizine - no nystagmus on my exam today and PT could not provoke nystagmus with head maneuvers -continue PRN meclizine -gave outpatient PT prescription for Filemon if persisting #brain aneurysm follows with [place] [facility]. S/p coiling. 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 - unchanged on head CTA on admission - continue baby aspirin #htn - resume triamterene-hctz #mental health - continue buspar and lexapro Notes For Next Care Provider BPPV negative stroke workup responding to meclizine outpatient PT Rx given, handout for self Filemon Admission HPI Per Admitting Provider Patient is a 74-year-old female with past medical history of known brain aneurysm, A-fib, DVT no longer longer on anticoagulation. Patient presented due to 2 days of sudden onset positional vertigo which she has no history of. Head CT revealed stable aneurysm, otherwise diagnostic imaging negative for acute changes. Patient with some fluid behind her tympanic membranes on physical exam. She is being admitted for vertigo workup. Patient seen at bedside. She woke up yesterday and when she got out of bed the whole room was spinning and she had associated nausea and dry heaves. Today she had similar symptoms however was worse. She tried to look up some maneuvers at home to help with vertigo however got worse whenever she laid down. Vertigo occurs with any head movements or when she goes from sitting to standing. She stated she did have some pain across her left neck and ear as well as feeling clammy for a few days however denies any other symptoms. Denies confusion, numbness, tingling, facial droop, difficulty speaking, difficulty with ambulation. She denies any history of allergies, rhinorrhea, sore throat, chest pain, shortness of breath. She feels unsteady on her feet due to the vertigo. She denies any nicotine use. Occasionally has a glass of wine or mixed drink with vodka. Denies past history of CVA. Did not take her home medications today due to not feeling well. She was previously on anticoagulation for DVT 4 to 6 years ago which was provoked from prolonged bus ride, took this for 6 months and now is no longer on anticoagulation. She wishes to be full code however would not want prolonged CPR. Discharge Exam Last 24h vitals reviewed GEN: no acute distress, sitting in bed HEENT: pupils equal, sclerae anicteric, moist MM RESP: normal WOB, CTAB CV: reg no mrg ABD: soft/nt/nd +BT : no mehta SKIN: warm and dry, no generalized rashes NEURO: AOx person, place, and situation. Face symmetric, speech normal, moves 4 ext spontaneously and equally. No horizontal or vertical nystagmus. MARIE. EOMI. FNF and GAURAV normal Discharge Plan Discharge Items Patient Disposition: Home - Self-Care Reason For Visit: VERTIGO, STROKE WORKUP Discharge Diagnosis: Benign Positional Vertigo Condition on Discharge: Good Activity: Per Instructions section Driving/Machine Use: Resume driving after vertigo symptoms resolve Non-emergency contact: Primary Care Provider Call non-emergency contact if: you have any medication questions and your symptoms worsen Follow-up/Referrals: Ever Burnett MD [Primary Care Provider] - 01/23/25 3:20 pm (PLEASE ARRIVE 15 MIN EARLY BRING DISCHARGE PAPERWORK TO APPT) Diet: Regular Addtl Attending Provider Instructions: Your vertigo is caused by Benign Positional Vertigo, which is very common but can be very uncomfortable. Fortunately neuroimaging with CTA of head/neck and brain MRI was negative for a stroke or any change in your aneurysm. Echocardiogram was basically normal. You can take meclizine as needed for vertigo. This medicine can cause drowsiness or dry mouth. If one tab is too strong, you can also cut it in half. If you have vomiting you can take zofran (ondansetrol) which is an antinausea medicine. The treatment of BPPV is physical: Follow up with outpatient PT for treatment with Filemon maneuvers. It is fine to do Filemon maneuvers are home on your own as well, just be sure you're in a safe place in case it provokes a bad episode. I would take a meclizine 30-60 minutes before trying it. It was a pleasure taking care of you in the hospital, Maddie Sifuentes MD Pending Studies at Discharge: No Stand-Alone Forms: My [facility], Smoking Cessation Medications and DC Order Prescriptions: New meclizine 25 mg tablet 25 mg PO TID PRN (Reason: dizziness or vertigo) Qty: 45 0RF ondansetron 4 mg tablet,disintegrating 4 mg PO Q6H PRN (Reason: nausea and vomiting) Qty: 20 0RF Continued aspirin [Adult Low Dose Aspirin] 81 mg tablet,delayed release (DR/EC) 81 mg PO QAM Patient Comments: Unable to verify OTC meds at this date/time. 01/21/25 buspirone 15 mg tablet 15 mg PO BID escitalopram oxalate 20 mg tablet 20 mg PO QAM calcium carbonate-vitamin D3 600 mg-5 mcg (200 unit) Tablet 1 tab PO QAM Patient Comments: Unable to verify OTC meds at this date/time. 01/21/25 lm-qv-cszl-FA-Ca carb-vit K 18 mg iron-400 mcg-500 mg Tablet 1 tab PO QAM Patient Comments: Unable to verify OTC meds at this date/time. 01/21/25 triamterene-hydrochlorothiazid 37.5-25 mg capsule 1 cap PO DAILY Discharge Orders: Discharge Order (Routine); Ordered 01/22/25 Ordered By: Maddie Collier/Other Patient Handouts: Meclizine Oral Tablet, BPPV Admission Data Admit Date/Time: 01/21/25 19:50 Attending Provider: Maddie Sifuentes Admit Provider: Jose E Martin Primary Care Provider: Ever Burnett Other Providers: Jose E Martin Other Interventions: Discharge Summary Assessment (RN) Last Done: 01/22/25 12:45 Hospital Stay Data Consultations 01/21/25 18:35 ED Decision to Admit Stat Diagnostic Imagining Performed 01/21/25 14:11 CT head/brain wo con Stat 01/21/25 15:50 CT angio head w con Stat CT angio neck with con Stat 01/21/25 19:41 MRI Brain [MR brain wo con] Stat Pending Results Patient Have Any Pending Studies at Discharge: No Discharge Instructions Given to Patient (Per Discharging Provider) Your vertigo is caused by Benign Positional Vertigo, which is very common but can be very uncomfortable. Fortunately neuroimaging with CTA of head/neck and brain MRI was negative for a stroke or any change in your aneurysm. Echocardiogram was basically normal. You can take meclizine as needed for vertigo. This medicine can cause drowsiness or dry mouth. If one tab is too strong, you can also cut it in half. If you have vomiting you can take zofran (ondansetrol) which is an antinausea medicine. The treatment of BPPV is physical: Follow up with outpatient PT for treatment with Filemon maneuvers. It is fine to do Filemon maneuvers are home on your own as well, just be sure you're in a safe place in case it provokes a bad episode. I would take a meclizine 30-60 minutes before trying it. It was a pleasure taking care of you in the hospital, Maddie Sifuentes MD Total Time Total Time Spent Total Time Spent (In Minutes): I personally spent: 40 minutes today on clinical care activities including: reviewing chart notes and vital signs reviewing labs reviewing studies reviewing tele examining and counseling the patient writing orders writing prescriptions, discharge instructions documentation Coding Level of Care Code 81440 INP/OBS DISCH >30 MIN Diagnoses Vertigo R42 Brain aneurysm I67.1 Hypertension I10
--- NOTE | 2025-01-22 12:10 | Electrocardiogram Report ---
Test Reason : Blood Pressure : */* mmHG Vent. Rate : 56 BPM Atrial Rate : 56 BPM P-R Int : 144 ms QRS Dur : 84 ms QT Int : 450 ms P-R-T Axes : 45 54 57 degrees QTcB Int : 434 ms Sinus bradycardia Poor R wave progression, consider anterior [place] vs. lead placement vs. LVH Abnormal ECG When compared with ECG of 31-Mar-2023 15:52, Vent. rate has decreased by 38 bpm Questionable change in QRS axis Confirmed by Pradip Mixon ([id number]) on 01/22/2025 9:39:58 AM Referred By: REFERRED SELF Confirmed By: Pradip Mixon
[2025-01-22] MEDS: MECLIZINE HCL 25 MG TAB PO STA (12:19)
== END 2025-01-22 15:24 | disposition home or self-care (01) ==
LOC: ED 13:24 → EDINP 13:24 → SUATTDRO 19:50 → 2N 20:01